=== PATIENT | female | born 1945 | race Hispanic/Latino ===

== ENCOUNTER 2020-12-19 07:06 | Inpatient (IN) | payer MEDICARE ==
[2020-12-12 09:00] VITALS: BP 160/73
[2020-12-12 09:40] LABS: BASOPHILS % (AUTO) 0.9 % (0.0-5.0); EOSINOPHILS % (AUTO) 2.7 % (0.0-8.0); HEMATOCRIT 36.3 % (36-48); LYMPHOCYTES % (AUTO) 37.9 % (21.0-51.0); MEAN CORPUSCULAR HEMOGLOBIN 34.9 pg (27.0-33.0); MEAN CORPUSCULAR HGB CONC 30.9 g/dL (32.0-36.0); MEAN CORPUSCULAR VOLUME 113.1 fL (79-99); NEUTROPHILS % (AUTO) 52.3 % (40.0-77.0); PLATELET COUNT (AUTO) 145 K/uL (130-400); RED BLOOD CELL COUNT(AUTO) 3.21 MIL/uL (4.00-5.50); RED CELL DISTRIBUTION WIDTH 16.4 % (11.0-15.5); WHITE BLOOD COUNT (AUTO) 4.5 K/uL (4.8-10.8)
[2020-12-12 09:50] LABS: INR 1.15 (0.85-1.15); PROTHROMBIN TIME 12.4 SEC (9.6-11.6)
[2020-12-12 09:51] LABS: PARTIAL THROMBOPLASTIN TIME 25.8 SEC (26.3-35.5)
[2020-12-12 09:54] LABS: ALBUMIN 2.2 g/dL (3.5-5.0); BILIRUBIN,TOTAL 0.4 mg/dL (0.2-1.0); POTASSIUM 4.8 mmol/L (3.5-5.1)
[2020-12-19] VITALS (44 sets, daily range): BP systolic 58–126; BP diastolic 26–65
[~2020-12-19] VITALS: Ht 160 cm; Wt 72.6 kg
[~2020-12-19 07:06] MED LIST: ASPI-1005 PO; ATOR10 PO; FISH1CAP27 PO; FOLI1TAB85 PO; GABA-531 PO; LEVO75TA10 PO; MIDO10TA PO; PANT20TA18 PO
[2020-12-19] MEDS ORDERED: 0.9% NACL 500ML IV.SOLN 500 ML IV ONE (08:10)
[2020-12-19] MEDS: CEFAZOLIN SODIUM 1 GM VIAL ONE ×2 (08:24→10:14)
[2020-12-19 08:43] LABS: CREATININE 3.1 mg/dL (0.5-1.5); POTASSIUM 4.4 mmol/L (3.5-5.1)
[2020-12-19] MEDS ORDERED: KETAMINE 50MG/ML SYRINGE 50 MG/ML DISP.SYRIN IV ONE (09:21)
[2020-12-19] MEDS ORDERED: LIDOCAINE PF 100MG/5ML (2%) SYRINGE 5ML ONE (09:21)
[2020-12-19] MEDS ORDERED: PROPOFOL 10 MG/ML 20ML VIAL IV ONE (09:22)
[2020-12-19] MEDS ORDERED: GLYCOPYRROLATE 1 MG/5 ML SYRINGE ONE (09:40)
[2020-12-19] MEDS ORDERED: ESMOLOL HCL 10 MG/ML 10 ML VIAL ONE (10:08)
[2020-12-19] MEDS ORDERED: ROCURONIUM 10MG/1ML SYR 10 MG/ML ML ONE (10:13)
[2020-12-19] MEDS ORDERED: CEFAZOLIN SODIUM 1 GM VIAL IVP ONE (10:14)
[2020-12-19] MEDS ORDERED: IOHEXOL-350 75 ML VIAL IV ONE (10:32)
[2020-12-19] MEDS ORDERED: METOPROLOL TARTRATE 1 MG/ML 5ML VIAL IV ONE (10:53)
[2020-12-19] MEDS ORDERED: FENTANYL CITRATE PF 50 MCG/1 ML 2ML VIAL ONE (11:14)
[2020-12-19 11:33] LABS: ABG BASE EXCESS -0.9 mmol/L (-2.0-3.0); ABG HCO3 24.6 mmol/L (21.0-28.0); ABG PCO2 45 mmHg (32-45)
[2020-12-19] MEDS ORDERED: HEPARIN 10,000 UNIT/10ML (1,000 UNIT/ML) VIAL ONE (11:33)
[2020-12-19] MEDS ORDERED: CLOPIDOGREL 75MG TAB ONE (13:04)
[2020-12-19] MEDS ORDERED: VANCOMYCIN 1G VIAL IVPB SCH (15:00)
[2020-12-19] MEDS ORDERED: CEFTAZIDIME PENTAHYDRATE 1 GM/VIAL IVP SCH (15:00)
[2020-12-19] MEDS ORDERED: 0.9% NACL 250ML IVPB SCH (16:00)
[2020-12-19] MEDS ORDERED: VANCOMYCIN 1G/250ML KIT 250 ML IV ONE (17:04)
[2020-12-19] MEDS ORDERED: DEXTROSE 50%-WATER 50 ML DISP.SYRIN IV ONE ×2 (17:30→18:30)
[2020-12-19] MEDS ORDERED: DEXTROSE 50%-WATER 50 ML DISP.SYRIN IV PRN (18:00)
[2020-12-19] MEDS ORDERED: NOREPINEPHRINE 4MG/NS 250ML 250 ML IV SCH (18:00)
[2020-12-19] MEDS ORDERED: SOLU-MEDROL 125MG VIAL IVP ONE (21:00)
[2020-12-19] MEDS ORDERED: ONDANSETRON 4MG INJ IVP PRN (21:30)
[2020-12-19] MEDS ORDERED: ACETAMINOPHEN 650 MG SUPPOSITORY RC PRN (21:30)
[2020-12-19] MEDS ORDERED: ACETAMINOPHEN WITH CODEINE 1 TAB TAB PO PRN (21:30)
[2020-12-19] MEDS ORDERED: ACETAMINOPHEN 325 MG TAB PO PRN (21:30)
[2020-12-19] MEDS: MIDODRINE HCL 5 MG TABLET PO SCH (21:58)
[2020-12-19 23:14] LABS: HEMATOCRIT 27.8 % (36-48)
[2020-12-20] VITALS (25 sets, daily range): BP systolic 87–133; BP diastolic 38–66
[2020-12-20 05:39] LABS: HEMATOCRIT 29.9 % (36-48); MEAN CORPUSCULAR HEMOGLOBIN 34.1 pg (27.0-33.0); MEAN CORPUSCULAR HGB CONC 31.1 g/dL (32.0-36.0); MEAN CORPUSCULAR VOLUME 109.5 fL (79-99); PLATELET COUNT (AUTO) 144 K/uL (130-400); RED BLOOD CELL COUNT(AUTO) 2.73 MIL/uL (4.00-5.50); RED CELL DISTRIBUTION WIDTH 16.8 % (11.0-15.5); WHITE BLOOD COUNT (AUTO) 3.1 K/uL (4.8-10.8)
[2020-12-20 06:01] LABS: ALBUMIN 1.8 g/dL (3.5-5.0); BILIRUBIN,TOTAL 0.4 mg/dL (0.2-1.0); CREATININE 4.1 mg/dL (0.5-1.5); MAGNESIUM 1.9 mg/dL (1.80-2.40); PHOSPHORUS 2.6 mg/dL (2.5-4.9); POTASSIUM 4.5 mmol/L (3.5-5.1); TOTAL PROTEIN, SERUM 5.2 g/dL (6.0-8.3)
[2020-12-20 08:04] LABS: THYROID STIMULATING HORMONE 2.74 uIU/mL (0.36-3.74)
[2020-12-20 08:45] LABS: HEMATOCRIT 29.2 % (36-48)
[2020-12-20] MEDS: PANTOPRAZOLE 40 MG TAB DR PO SCH ×2 (09:36→13:23)
[2020-12-20] MEDS: MIDODRINE HCL 5 MG TABLET PO SCH ×3 (09:36→21:16)
[2020-12-20] MEDS ORDERED: AMITRIPTYLINE 25 MG TABLET PO SCH (11:00)
[2020-12-20] MEDS: CLOPIDOGREL 75MG TAB PO SCH (12:00)
[2020-12-20] MEDS ORDERED: MIDODRINE HCL 5 MG TABLET PO PRN (13:30)
[2020-12-20] MEDS: DOCUSATE SODIUM 100 MG CAP PO SCH ×2 (14:00→21:16)
[2020-12-20 15:41] LABS: HEMATOCRIT 25.3 % (36-48)
[2020-12-20] MEDS ORDERED: HEPARIN 5,000 UNIT VIAL IJ PRN (16:30)
[2020-12-20] MEDS ORDERED: 0.9%NACL 1000ML 1,000 ML IV PRN (16:30)
[2020-12-20] MEDS ORDERED: ATORVASTATIN 10 MG TABLET PO SCH (21:00)
[2020-12-20] MEDS: GABAPENTIN 300 MG CAPSULE PO SCH (21:16)
[2020-12-21 00:05] VITALS: BP 103/49
[2020-12-21 04:00] VITALS: BP 97/50
[2020-12-21 05:29] LABS: HEMATOCRIT 25.1 % (36-48); MEAN CORPUSCULAR HEMOGLOBIN 34.9 pg (27.0-33.0); MEAN CORPUSCULAR HGB CONC 32.3 g/dL (32.0-36.0); MEAN CORPUSCULAR VOLUME 108.2 fL (79-99); RED BLOOD CELL COUNT(AUTO) 2.32 MIL/uL (4.00-5.50); RED CELL DISTRIBUTION WIDTH 17.3 % (11.0-15.5); WHITE BLOOD COUNT (AUTO) 5.4 K/uL (4.8-10.8)
[2020-12-21 05:44] LABS: CREATININE 2.9 mg/dL (0.5-1.5); POTASSIUM 3.4 mmol/L (3.5-5.1)
[2020-12-21] MEDS: PANTOPRAZOLE 40 MG TAB DR PO SCH ×2 (06:42→09:42)
[2020-12-21] MEDS ORDERED: LEVOTHYROXINE 75 MCG TABLET PO SCH (07:30)
[2020-12-21 08:00] VITALS: BP 109/58
[2020-12-21] MEDS ORDERED: CLOP75TA14 PO (08:50)
[2020-12-21] MEDS: FISH OIL 1000 MG/CAP PO SCH ×2 (09:00→09:40)
[2020-12-21] MEDS ORDERED: ASPIRIN 81MG CHEW TAB PO SCH (09:00)
[2020-12-21] MEDS: MAGNESIUM HYDROXIDE 30 ML/UDCUP PO SCH ×2 (09:00→09:41)
[2020-12-21] MEDS ORDERED: VITAMIN B COMPLEX 1 CAPSULE PO SCH (09:00)
[2020-12-21] MEDS ORDERED: CLOPIDOGREL 75MG TAB PO SCH (09:00)
[2020-12-21] MEDS: DOCUSATE SODIUM 100 MG CAP PO SCH ×2 (09:40→14:00)
[2020-12-21] MEDS: CLOPIDOGREL 75MG TAB PO SCH (09:41)
[2020-12-21] MEDS: GABAPENTIN 300 MG CAPSULE PO SCH (09:41)
[2020-12-21] MEDS: MIDODRINE HCL 5 MG TABLET PO SCH ×2 (09:41→14:00)
[2020-12-23 02:08] LABS: HEPATITIS Bs ANTIGEN SCREEN P Negative (Negative)
== END 2020-12-21 15:30 | disposition home or self-care (01) | DRG 252 ==
LOC: DAH 07:06 → DAHIP 07:07 → DAH 07:07 → 2DH 14:43 → 3CH 12-20 19:09
PROVIDERS: ADMIT Student in an Organized Health Care Education/Training Program; ATTEND Student in an Organized Health Care Education/Training Program
PROC: 057Y0ZZ Dilation of Upper Vein, Open Approach (ICD-10-PCS; 2020-12-19)
PROC: B51W1ZZ Fluoroscopy of Dialysis Shunt/Fistula using Low Osmolar Contrast (ICD-10-PCS; 2020-12-19)
PROC: 5A1D70Z Performance of Urinary Filtration, Intermittent, Less than 6 Hours Per Day (ICD-10-PCS; 2020-12-19)
PROC: 05CY0ZZ Extirpation of Matter from Upper Vein, Open Approach (ICD-10-PCS; principal; 2020-12-19 09:44)
PROC: 5A1D70Z Performance of Urinary Filtration, Intermittent, Less than 6 Hours Per Day (ICD-10-PCS; 2020-12-20)
DX: I95.81 Postprocedural hypotension (principal); N18.6 End stage renal disease; T82.868A Thrombosis due to vascular prosthetic devices, implants and grafts, initial encounter; I12.0 Hypertensive chronic kidney disease with stage 5 chronic kidney disease or end stage renal disease; E27.40 Unspecified adrenocortical insufficiency; E11.40 Type 2 diabetes mellitus with diabetic neuropathy, unspecified; D63.8 Anemia in other chronic diseases classified elsewhere; E11.649 Type 2 diabetes mellitus with hypoglycemia without coma; E11.22 Type 2 diabetes mellitus with diabetic chronic kidney disease; E78.5 Hyperlipidemia, unspecified; K59.00 Constipation, unspecified; Y83.2 Surgical operation with anastomosis, bypass or graft as the cause of abnormal reaction of the patient, or of later complication, without mention of misadventure at the time of the procedure; Y92.89 Other specified places as the place of occurrence of the external cause; Z74.01 Bed confinement status; Z99.2 Dependence on renal dialysis; Z83.3 Family history of diabetes mellitus; Z82.49 Family history of ischemic heart disease and other diseases of the circulatory system; Z20.822 Contact with and (suspected) exposure to COVID-19
CPT/HCPCS: 36415; 71045; 76000; 80048; 80053; 82435; 82533; 82550; 82803; 82947; 82948; 83605; 83735; 83874; 84100; 84132; 84295; 84443; 84484; 85014; 85018; 85025; 85027; 85610; 85730; 86704; 86706; 87040; 87340; 87635; 88304; 90935; 93005; C1725; C1757; C1758; C1769; C9803; G0378; J0690; J0713; J1644; J2001; J2704; J2930; J3010; J3370; J3490; J7040; J7070; Q9967